=== PATIENT | female | born 1975 | race Two or more races ===

== ENCOUNTER 2021-11-14 18:08 | Emergency (ER) | payer MEDICAID, OTHER ==
[~2021-11-14] VITALS: Ht 165.1 cm; Wt 72.7 kg
[2021-11-14 19:35] VITALS: BP 144/83
[2021-11-14] MEDS ORDERED: KETOROLAC TROMETH 60MG/2ML VIAL IM ONE (22:00)
== END 2021-11-14 22:22 | disposition home or self-care (01) ==
LOC: ER 18:11
DX: M25.552 Pain in left hip (principal); M25.562 Pain in left knee; J45.909 Unspecified asthma, uncomplicated; Z98.51 Tubal ligation status; V43.62XA Car passenger injured in collision with other type car in traffic accident, initial encounter; Y93.89 Activity, other specified; Y92.410 Unspecified street and highway as the place of occurrence of the external cause; Y99.8 Other external cause status
CPT/HCPCS: 73502; 73562; 96372; 99284; J1885